=== PATIENT | female | born 1955 | race African-American/Black ===

== ENCOUNTER 2022-10-15 12:05 | Emergency (ER) | payer SELFPAY ==
[~2022-10-15] VITALS: Ht 160 cm; Wt 71.0 kg
[2022-10-15 12:16] VITALS: BP 163/74
== END 2022-10-15 14:17 | disposition left against medical advice (07) ==
LOC: ER 12:26
DX: Z53.21 Procedure and treatment not carried out due to patient leaving prior to being seen by health care provider (principal)
CPT/HCPCS: 99281